=== PATIENT | male | born 2000 | race Asian ===

== ENCOUNTER 2018-04-09 22:38 | Emergency (ER) | payer OTHER ==
[2018-04-09] MEDS ORDERED: LORATADINE 10 MG TAB PO (23:30)
== END 2018-04-09 23:52 | disposition home or self-care (01) ==
LOC: FTE 22:38
DX: S00.212A Abrasion of left eyelid and periocular area, initial encounter (principal); V49.88XA Car occupant (driver) (passenger) injured in other specified transport accidents, initial encounter
CPT/HCPCS: 99283; Z7502